=== PATIENT | male | born 1990 | race Caucasian/White ===

== ENCOUNTER 2025-01-27 21:23 | Emergency (ER) | payer SELFPAY ==
[2025-01-27] MEDS: Take Home: traMADol 50 MG, 4 Tab Pack PO ONE (22:11)
[2025-01-27] MEDS: Take Home: Lidocaine 2% Viscous Solution 15 ML UD, 2 Cup Pack PO ONE (22:11)
== END 2025-01-27 22:17 | disposition home or self-care (01) ==
LOC: DL.ED 21:23
DX: K04.7 Periapical abscess without sinus (principal); K08.539 Fractured dental restorative material, unspecified; Z88.0 Allergy status to penicillin
CPT/HCPCS: 99282; A9270-GY